=== PATIENT | male | born 1970 | race Caucasian/White ===

== ENCOUNTER 2020-12-04 08:46 | Emergency (ER) | payer MEDICARE ==
[~2020-12-04 08:46] MED LIST: AMARYL4 MG PO; BRILINTA90 MG PO; BUSPIRONE HCL5 MG PO; COREG 12.5MG12.5 MG PO; COZAAR25 MG PO; DIOVAN 80 MG TA80 MG PO; ECOTRIN81 MG PO; FENOFIBRATE67 MG PO; FLAX OIL1000 MG PO; FLONASE 0.05% N16 GM; JARDIANCE10 MG PO; LORTAB 5-325 M1 EACH PO; NICOTINE PATCH1 EAC1 TD; OZEMPIC0.25 MG/0. SQ; SERAX PO; SPIRIVA18 MCG INH; TRAZODONE HCL100 MG PO; VASCEPA1 GM PO; VENTOLIN HFA 66.7 GM INH; ZETIA 10 MG TAB10 MG PO; ZOLOFT100 MG PO; repatha SQ
== END 2020-12-04 11:26 | disposition home or self-care (01) ==
LOC: ER1 08:46
DX: L02.412 Cutaneous abscess of left axilla (principal); F41.9 Anxiety disorder, unspecified; E11.9 Type 2 diabetes mellitus without complications; F17.200 Nicotine dependence, unspecified, uncomplicated; Z88.1 Allergy status to other antibiotic agents
CPT/HCPCS: 10060; 99283